=== PATIENT | female | born 1950 | race Caucasian/White ===

== ENCOUNTER 2016-12-05 08:59 | Emergency (ER) | payer MEDICARE, MEDICAID ==
[~2016-12-05] VITALS: Ht 161.3 cm; Wt 85.7 kg
[~2016-12-05 08:59] MED LIST: AMLO5TAB5 PO; HCT25T PO; LAMO100T69 PO; LORA0.5T PO; OLN10T PO; OXYC-199 PO; PARO20TA57 PO; POTA10CA43 PO; PROP20TA23 PO; PRX10T PO; SMV20T PO; TEA60OIL TP
--- OUTSIDE RECORDS SUMMARY | 2016-12-05 09:05 | XMS REPORT ---
Author Author NEYDA HOPSON e[employer] Address Unknown Phone Unavailable Care Team Providers Care Pbx Technician Name Role Phone NEYDA HOPSON CP Unavailable Allergies, Adverse Reactions, Alerts Substance Reaction Event Type N.K.D.A. Info Not Available Non Drug Allergy Problems Problem Type Condition Code Onset Dates Condition Status Assessment Encounter for dental examination Z01.20 Active Problem Encounter for dental examination Z01.20 Active Medications Medication Code System Code Instructions Start Date End Date Status Dosage Propranolol HCl [facility] [address]-16 20 MG/5ML Orally not defined Micro-K [facility] [address]-47 10 MEQ Orally Twice a day 1 capsule Zocor [facility] [address]-11 20 MG Orally Once a day 1 tablet in the evening Paxil [facility] [address]-93 10 MG Orally Once a day 1 tablet in the morning Hydrochlorothiazide [facility] [address]-73 25 MG Orally Once a day 1 tablet Ativan [facility] [address]-81 0.5 MG Orally Twice a day 1 tablet as needed MiraLax [facility] [address]-66 Orally not defined Zyprexa [facility] [address]-89 10 MG Orally Once a day 1 tablet Paxil [facility] [address]-16 20 MG Orally Once a day 1 tablet in the morning Lamictal [facility] [address]-38 100 MG Orally Twice a day 2 tablets Norvasc [facility] [address]-19 5 MG Orally Once a day 1 tablet Procedures Procedure Coding System Code Date INTRAORL-PERIAPICAL 1 FILM 35695 CPT-4 D0220 Mar 22, 2015 INTRAORL-PERIAPICAL EA ADD FILM CPT-4 D0230 Mar 22, 2015 COMP ORAL EVALUATION - NEW/EST PT CPT-4 D0150 Mar 22, 2015 TOPICAL FLUORIDE VARNISH CPT-4 D1206 Mar 22, 2015 BITEWINGS - FOUR FILMS CPT-4 D0274 Mar 22, 2015 INTRAORL-PERIAPICAL EA ADD FILM CPT-4 D0230 Mar 22, 2015 Full mouth debridement CPT-4 D4355 Mar 22, 2015 PANORAMIC FILM SEE ALSO CODE 62069 CPT-4 D0330 Mar 22, 2015 Vital Signs Date/Time: Mar 22, 2015 Blood Pressure Diastolic 67 mmHg Blood Pressure Systolic 111 mmHg Cardiac Monitoring Heart Rate 65 bpm Results No Known Results Summary Purpose eClinicalWorks Submission
--- OUTSIDE RECORDS SUMMARY | 2016-12-05 09:05 | XMS REPORT ---
Author Author JEANNINE SEVERINO Organization e[employer] Address Unknown Phone Unavailable Care Team Providers Care Home Health Care Respiratory Therapist Name Role Phone JEANNINE SEVERINO CP Unavailable Allergies, Adverse Reactions, Alerts Substance Reaction Event Type N.K.D.A. Info Not Available Non Drug Allergy Problems Problem Type Condition Code Onset Dates Condition Status Assessment Encounter for dental examination and cleaning without abnormal findings Z01.20 Active Problem Encounter for dental examination Z01.20 Active Medications No Known Medications Procedures Procedure Coding System Code Date TOPICAL FLUORIDE VARNISH CPT-4 D1206 December 01, 2015 PROPHYLAXIS - ADULT CPT-4 D1110 December 01, 2015 Results No Known Results Summary Purpose eClinicalWorks Submission
--- OUTSIDE RECORDS SUMMARY | 2016-12-05 09:05 | XMS REPORT ---
Author Author MARCELLE AMATO [facility] [place] eClinicalWorks Address Unknown Phone Unavailable Care Team Providers Care Postal Mail Carrier Name Role Phone MARCELLE AMATO CP Unavailable Allergies No Known Allergies Problems Problem Type Condition Code Onset Dates Condition Status Assessment Encounter for dental examination Z01.20 Active Problem Encounter for dental examination Z01.20 Active Medications No Known Medications Procedures Procedure Coding System Code Date INTRAORL-PERIAPICAL EA ADD FILM CPT-4 D0230 December 01, 2015 INTRAORL-PERIAPICAL EA ADD FILM CPT-4 D0230 December 01, 2015 PERIODIC ORAL EXAMINATION CPT-4 D0120 December 01, 2015 INTRAORL-PERIAPICAL EA ADD FILM CPT-4 D0230 December 01, 2015 INTRAORL-PERIAPICAL EA ADD FILM CPT-4 D0230 December 01, 2015 INTRAORL-PERIAPICAL 1 FILM 20456 CPT-4 D0220 December 01, 2015 INTRAORL-PERIAPICAL EA ADD FILM CPT-4 D0230 December 01, 2015 Results No Known Results Summary Purpose eClinicalWorks Submission
--- OUTSIDE RECORDS SUMMARY | 2016-12-05 09:06 | XMS REPORT | Continuity of Care Document ---
Author Author [facility] Organization 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 04/08/2014 MARY VALE DO Ot 233.0 04/08/2014 MARY VALE DO Ot 793.81 04/15/2014 AALIYAH CHRISTIAN MD Ot 174.4 MAL MARCK BREAST UP-OUTER 04/15/2014 AALIYAH CHRISTIAN MD Ot 272.4 HYPERLIPIDEMIA NEC/NOS 04/15/2014 AALIYAH CHRISTIAN MD Ot 278.00 OBESITY, NOS 04/15/2014 AALIYAH CHRISTIAN MD Ot 295.70 SCHIZOAFFECTIVE DISORDER, UNSPECIFIED 04/15/2014 AALIYAH CHRISTIAN MD Ot 318.0 MODERATE INTELLECTUAL DISABILITIES 04/15/2014 AALIYAH CHRISTIAN MD Ot 401.9 HYPERTENSION NOS 04/15/2014 AALIYAH CHRISTIAN MD Ot V58.69 OTH MED,LT,CURRENT USE 04/15/2014 GINO STINSON, AALIYAH Huynh Ot V85.33 BODY MASS INDEX 33.0-33.9, ADULT 01/21/2015 AALIYAH CHRISTIAN MD Ot 174.4 01/21/2015 AALIYAH CHRISTIAN MD Ot 272.4 01/21/2015 AALIYAH CHRISTIAN MD Ot 278.00 01/21/2015 AALIYAH CHRISTIAN MD Ot 295.70 01/21/2015 AALIYAH CHRISTIAN MD Ot 318.0 01/21/2015 AALIYAH CHRISTIAN MD Ot 401.9 01/21/2015 AALIYAH CHRISTIAN MD Ot V58.69 01/21/2015 AALIYAH CHRISTIAN MD Ot V85.33 01/21/2015 AALIYAH CHRISTIAN MD Ot 174.4 01/21/2015 AALIYAH CHRISTIAN MD Ot 272.4 01/21/2015 AALIYAH CHRISTIAN MD Ot 278.00 01/21/2015 GINO STINSON, AALIYAH Huynh Ot 295.70 01/21/2015 GINO STINSON, AALIYAH Huynh Ot 318.0 01/21/2015 GINO STINSON, AALIYAH Huynh Ot 401.9 01/21/2015 GINO STINSON, AALIYAH Huynh Ot V58.69 01/21/2015 GINO STINSON, AALIYAH Huynh Ot V85.33 01/24/2015 Ot 429.3 01/24/2015 Ot 786.07 01/24/2015 Ot 786.2 01/24/2015 Ot 272.4 01/24/2015 Ot 783.1 01/24/2015 Ot 786.05 01/24/2015 Ot 611.72 01/24/2015 Ot V76.12 01/24/2015 Ot 611.72 01/24/2015 Ot V67.9 01/24/2015 Ot 793.82 01/24/2015 Ot V76.12 01/24/2015 Ot 610.0 01/24/2015 Ot 611.72 01/24/2015 GELLENDER DO, MARY Chance Ot V76.12 01/24/2015 GELLENDER DO, MARY A Ot 793.81 01/24/2015 GELLENDER DO, MARY A Ot 233.0 01/24/2015 GELLENDER DO, MARY A Ot 793.81 01/24/2015 JOAQUÍN STINSON, ALEJO Ot 174.9 01/24/2015 JOAQUÍN STINSON, ALEJO Ot 791.9 01/24/2015 JOAQUÍN STINSON, ALEJO Ot V72.63 01/24/2015 JOAQUÍN STINSON, ALEJO Ot V72.83 01/24/2015 JOAQUÍN STINSON, ALEJO Ot V74.8 01/24/2015 GELLENDER DO, MARY A Ot 518.0 01/24/2015 GELLENDER DO, MARY A Ot 791.9 01/24/2015 GINO STINSON, AALIYAH Amina Ot 174.4 01/24/2015 GINO STINSON, AALIYAH Huynh Ot 272.4 01/24/2015 GINO STINSON, AALIYAH Huynh Ot 278.00 01/24/2015 GINO STINSON, AALIYAH Huynh Ot 295.70 01/24/2015 IGNO STINSON, AALIYAH uHynh Ot 318.0 01/24/2015 GINO STINSON, AALIYAH Amina Ot 401.9 01/24/2015 GINO STINSON, AALIYAH Huynh Ot V58.69 01/24/2015 GINO STINSON, AALIYAH Huynh Ot V85.33 01/28/2015 GINO STINSON, AALIYAH Huynh Ot 174.4 01/28/2015 GINO STINSON, AALIYAH Huynh Ot 272.4 01/28/2015 GINO STINSON, AALIYAH Huynh Ot 278.00 01/28/2015 GINO STINSON, AALIYAH Huynh Ot 295.70 01/28/2015 GINO STINSON, AALIYAH Huynh Ot 318.0 01/28/2015 GINO STINSON, AALIYAH Huynh Ot 401.9 01/28/2015 GINO STINSON, AALIYAH Huynh Ot V58.69 01/28/2015 GINO STINSON, AALIYAH Huynh Ot V85.33 02/23/2015 GINO STINSON, AALIYAH Huynh Ot 174.4 MAL MARCK BREAST UP-OUTER 02/23/2015 GINO STINSON, AALIYAH Huynh Ot 272.4 HYPERLIPIDEMIA NEC/NOS 02/23/2015 GINO STINSON, AALIYAH Huynh Ot 278.00 OBESITY, NOS 02/23/2015 GINO STINSON, AALIYAH Huynh Ot 295.70 SCHIZOAFFECTIVE DISORDER, UNSPECIFIED 02/23/2015 GINO STINSON, AALIYAH Huynh Ot 318.0 MODERATE INTELLECTUAL DISABILITIES 02/23/2015 GINO STINSON, AALIYAH Huynh Ot 401.9 HYPERTENSION NOS 02/23/2015 GINO STINSON, AALIYAH Huynh Ot V58.69 OTH MED,LT,CURRENT USE 02/23/2015 GINO STINSON, AALIYAH Huynh Ot V85.33 BODY MASS INDEX 33.0-33.9, ADULT 02/23/2015 GELLENDER DO, MARY Chance Ot V76.12 03/14/2015 GELLENDER DO, MARY Robson Ot V76.12 03/21/2015 GELLENDER DO, MARY Chance Ot V76.12 07/21/2015 GINO STINSON, AALIYAH Huynh Ot 174.4 07/21/2015 GINO STINSON, AALIYAH Huynh Ot 272.4 07/21/2015 GINO STINSON, AALIYAH Huynh Ot 278.00 07/21/2015 GINO STINSON, AALIYAH Huynh Ot 295.70 07/21/2015 GINO STINSON, AALIYAH Huynh Ot 318.0 07/21/2015 GINO STINSON, AALIYAH Huynh Ot 401.9 07/21/2015 GINO STINSON, AALIYAH Huynh Ot V58.69 07/21/2015 GINO STINSON, AALIYAH Huynh Ot V85.33 04/05/2016 Ot 793.82 INCONCLUSIVE MAMMOGRAM 04/05/2016 Ot V76.12 OTH SCREEN MAMMO-MALIGN NEOPLASM OF ISAAC 04/05/2016 Ot 610.0 SOLITARY CYST OF BREAST 04/05/2016 Ot 611.72 LUMP OR MASS IN BREAST 04/05/2016 MARY VALE DO Ot V76.12 OTH SCREEN MAMMO-MALIGN NEOPLASM OF ISAAC 04/05/2016 MARY VALE DO Ot 793.81 MAMMOGRAPHIC MICROCLACIFICATION 04/05/2016 MARY VALE DO Ot 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 04/05/2016 MARY VALE DO Ot 793.81 MAMMOGRAPHIC MICROCLACIFICATION 04/05/2016 ALEJO YANES MD Ot 174.9 MALIGN NEOPL BREAST NOS 04/05/2016 JOAQUÍN STINSON, ALEJO Ot 791.9 ABN URINE FINDINGS NEC 04/05/2016 ALEJO YANES MD Ot V72.63 PRE-PROCEDURAL LABORATORY EXAMINATION 04/05/2016 ALEJO YANES MD Ot V72.83 EXAM PRE-OPERATIVE NEC 04/05/2016 ALEJO YANES MD Ot V74.8 SCREEN-BACTERIAL DIS NEC 04/05/2016 MARY VALE DO Ot 518.0 PULMONARY COLLAPSE 04/05/2016 MARY VALE DO Ot 791.9 ABN URINE FINDINGS NEC 04/05/2016 MARY VALE DO Ot V76.12 OTH SCREEN MAMMO-MALIGN NEOPLASM OF ISAAC 04/05/2016 GINO STINSON, AALIYAH Huynh Ot 174.4 04/05/2016 GINO STINSON, AALIYAH Huynh Ot 272.4 04/05/2016 GINO STINSON, AALIYAH Huynh Ot 278.00 04/05/2016 GINO STINSON, AALIYAH Huynh Ot 295.70 04/05/2016 GINO STINSON, AALIYAH Amina Ot 318.0 04/05/2016 GINO STINSON, AALIYAH Amina Ot 401.9 04/05/2016 GINO STINSON, AALIYAH Amina Ot V58.69 04/05/2016 GINO STINSON, AALIYAH Amina Ot V85.33 04/05/2016 KAVIN WEEKS MARY Chance Ot Z12.31 ENCNTR SCREEN MAMMOGRAM FOR MALIGNANT NE 04/06/2016 KAVIN WEEKS MARY Chance Ot Z12.31 ENCNTR SCREEN MAMMOGRAM FOR MALIGNANT NE 04/06/2016 KAVIN WEEKSMARY Ot Z12.31 ENCNTR SCREEN MAMMOGRAM FOR MALIGNANT NE Procedures Results Encounters ACCT No. Visit Date/Time Discharge Status Pt. Type Provider Facility Loc./Unit Complaint [id number] 02/24/2015 00:17:00 2014 23:59:59 CLS Preadmit AALIYAH CHRISTIAN MD [facility] ONC [id number] 01/27/2015 10:48:00 2014 00:01:00 DIS Outpatient AALIYAH CHRISTIAN MD [facility] ONC [id number] 02/18/2015 10:00:00 2014 23:59:59 CLS Outpatient MARY VALE DO [facility] RAD SCREENING [id number] 01/15/2014 09:30:00 2013 00:01:00 DIS Outpatient AALIYAH CHRISTIAN MD [facility] ONC [id number] 02/23/2014 13:13:00 2013 23:59:59 CLS Outpatient MARY VALE DO [facility] RAD WBC 26.4 [id number] 02/18/2014 06:15:00 2013 15:20:00 DIS Outpatient ALEJO YANES MD [facility] SDC RIGHT BREAST CANCER [id number] 02/11/2014 11:59:00 2013 23:59:59 CLS Outpatient ALEJO YANES MD [facility] PREOP RIGHT BREAST CANCER [id number] 12/30/2013 09:27:00 2013 23:59:59 CLS Outpatient MARY VALE DO [facility] RAD ABN MAMMO,CALCIFICATIONS [id number] 12/22/2013 13:32:00 2013 23:59:59 CLS Outpatient MARY VALE DO [facility] RAD ABNORMAL MAMMO [id number] 12/03/2013 13:13:00 2013 23:59:59 CLS Outpatient MARY VALE DO [facility] RAD SCREENING [id number] 04/05/2016 09:59:00 ACT Outpatient MARY VALE DO [facility] RAD SCREENING [id number] 01/24/2015 13:21:00 Document Registration [id number] 01/24/2015 13:21:00 Document Registration [id number] 10/02/2011 10:29:00 Document Registration [id number] 09/06/2011 10:04:00 Document Registration [id number] 08/21/2010 13:52:00 Document Registration [id number] 08/08/2010 09:52:00 Document Registration [id number] 09/23/2009 09:29:00 Document Registration [id number] 08/18/2009 11:06:00 Document Registration
--- NOTE | 2016-12-05 09:10 | ED Fall/Injury ---
General Stated Complaint: FALL/HEAD INJ Source: patient, EMS, caregiver Exam Limitations: other (mentally challenged) History of Present Illness Time seen by provider: 09:00 Initial Comments Patient arrived by EMS along with caregiver from the work [facility] on [facility]. Patient has background of dementia and mentally challenged. She was walking through the door and the screen was apparently knocked out however the screen door frame was still closed and she did not step up high enough over it tripped and fell face first into the concrete sidewalk. She was bleeding from a laceration in her middle of her for head as well as had scraped up her right knee. She claims she has pain in her right knee and her forehead. The bleeding has stopped. Caregiver denies patient being on any Blood thinners. She says last few days the patient has been behaving more slowly and attributed this to her dementia. EMS reports the patient had no loss of consciousness and they applied pressure and the bleeding had pretty much stopped by the time they arrived at the ER. Allergies and Home Medications Allergies Coded Allergies: No Known Drug Allergies (Verified Allergy, Unknown, 01/13/09) Home Medications Amlodipine Besylate 5 Mg Tablet, 5 MG PO DAILY, (Reported) Hydrochlorothiazide 25 Mg Tab, 25 MG PO DAILY, (Reported) Lamotrigine 100 Mg Tablet, 100 MG PO BID, (Reported) Lorazepam 0.5 Mg Tablet, 0.5 MG PO TID, (Reported) Olanzapine 10 Mg Tab, 10 MG PO HS, (Reported) Oxycodone Hcl/Acetaminophen 1 Tab Tablet, 1-2 TAB PO Q6H, #35 Prescribed by: ALEJO YANES on 02/18/14 1103 Paroxetine Hcl 10 Mg Tablet, 30 MG PO DAILY, (Reported) take with 20mg tab to total 30mg Paroxetine Hcl 20 Mg Tablet, 30 MG PO DAILY, (Reported) take with 10mg tab to total 30mg Potassium Chloride 10 Meq Capsule.sa, 10 MEQ PO BID WITH MEALS, (Reported) Propranolol Hcl 20 Mg Tablet, 20 MG PO BID, (Reported) Simvastatin 20 Mg Tab, 20 MG PO DAILY, (Reported) Tea Tree Oil 60 Ml Oil, 1 DROP TP HS, (Reported) apply one drop to toenails after shower Constitutional: No chills, No fever, No malaise Eyes: Denies Blindness, Denies Blurred Vision, Denies Pain Ears, Nose, Mouth, Throat: denies ear pain, denies ear discharge, denies epistaxis, denies loose teeth Respiratory: No cough, No short of breath Cardiovascular: No chest pain, No edema, No syncope Gastrointestinal: No abdominal pain, No constipation, No diarrhea, nausea, No vomiting Genitourinary: No dysuria, No frequency Musculoskeletal: No back pain, No joint pain Skin: see HPI Past Xzyphda-Gwnrft-Vidvhl Hx Patient Social History Alcohol Use: Denies Use Recreational Drug Use: No Smoking Status: Never a Smoker Surgeries HX Surgeries: Yes (cysts off chest, possible hysterectomy) Respiratory Hx Respiratory Disorders: No Cardiovascular Hx Cardiac Disorders: Yes Neurological Hx Neurological Disorders: Yes (moderate MR) Genitourinary Hx Genitourinary Disorders: No Gastrointestinal Hx Gastrointestinal Disorders: Yes (constipation) Musculoskeletal Hx Musculoskeletal Disorders: No Endocrine Hx Endocrine Disorders: No HEENT HX ENT Disorders: No Blood Transfusions Hx Blood Disorders: No Family Medical History Family Medial History: Patient reports no known family medical history. Physical Exam Vital Signs Vital Sign - Last 12Hours 12/05/16 08:59 Temp 98.2 Pulse 92 Resp 18 B/P (MAP) 130/97 Pulse Ox 93 O2 Delivery Room Air Capillary Refill : General Appearance: WD/WN, mild distress, obese HEENT: PERRL/EOMI, normal ENT inspection, TMs normal, pharynx normal Neck: non-tender, full range of motion, supple, normal inspection Cardiovascular: normal peripheral pulses, regular rate, rhythm, no edema Respiratory: chest non-tender, lungs clear Gastrointestinal: non tender, soft Back: normal inspection, no vertebral tenderness Extremities: normal range of motion, non-tender, normal inspection, no pedal edema, normal capillary refill Neurologic/Psychiatric: waste chopper II-XII nml as tested, no motor/sensory deficits, alert, normal mood/affect, other (oriented to self. Caregiver remarks this is baseline. Cooperative.) Skin: normal color, warm/dry, other (linear hemostatic laceration forehead approximately 3-4 cm) Progress/Results/Core Measures Results/Orders Lab Results Laboratory Tests Test 12/05/16 09:18 12/05/16 09:44 Range/Units White Blood Count 7.2 4.3-11.0 10^3/uL Red Blood Count 4.69 4.35-5.85 10^6/uL Hemoglobin 13.8 11.5-16.0 G/DL Hematocrit 43 35-52 % Mean Corpuscular Volume 91 80-99 FL Mean Corpuscular Hemoglobin 29 25-34 PG Mean Corpuscular Hemoglobin Concent 32 32-36 G/DL Red Cell Distribution Width 13.7 10.0-14.5 % Platelet Count 276 130-400 10^3/uL Mean Platelet Volume 8.9 7.4-10.4 FL Neutrophils (%) (Auto) 54 42-75 % Lymphocytes (%) (Auto) 30 12-44 % Monocytes (%) (Auto) 12 0-12 % Eosinophils (%) (Auto) 4 0-10 % Basophils (%) (Auto) 0 0-10 % Neutrophils # (Auto) 3.9 1.8-7.8 X 10^3 Lymphocytes # (Auto) 2.1 1.0-4.0 X 10^3 Monocytes # (Auto) 0.9 0.0-1.0 X 10^3 Eosinophils # (Auto) 0.3 0.0-0.3 10^3/uL Basophils # (Auto) 0.0 0.0-0.1 10^3/uL Sodium Level 140 135-145 MMOL/L Potassium Level 4.1 3.6-5.0 MMOL/L Chloride Level 101 98-107 MMOL/L Carbon Dioxide Level 33 H 21-32 MMOL/L Anion Gap 6 5-14 MMOL/L Blood Urea Nitrogen 13 7-18 MG/DL Creatinine 0.83 0.60-1.30 MG/DL Estimat Glomerular Filtration Rate > 60 BUN/Creatinine Ratio 16 Glucose Level 115 H 70-105 MG/DL Calcium Level 9.3 8.5-10.1 MG/DL Magnesium Level 2.1 1.8-2.4 MG/DL Total Bilirubin 0.3 0.1-1.0 MG/DL Aspartate Amino Transf (AST/SGOT) 19 5-34 U/L Alanine Aminotransferase (ALT/SGPT) 21 0-55 U/L Alkaline Phosphatase 88 40-136 U/L Ammonia 46 H 11-32 UMOL/L C-Reactive Protein High Sensitivity 0.25 0.00-0.50 MG/DL Total Protein 7.3 6.4-8.2 GM/DL Albumin 3.8 3.2-4.5 GM/DL Urine Color YELLOW Urine Clarity CLEAR Urine pH 8 5-9 Urine Specific [place] 1.010 L 1.016-1.022 Urine Protein NEGATIVE NEGATIVE Urine Glucose (UA) NEGATIVE NEGATIVE Urine Ketones NEGATIVE NEGATIVE Urine Nitrite NEGATIVE NEGATIVE Urine Bilirubin NEGATIVE NEGATIVE Urine Urobilinogen NORMAL NORMAL MG/DL Urine Leukocyte Esterase 1+ H NEGATIVE Urine RBC (Auto) NEGATIVE NEGATIVE Urine RBC NONE /HPF Urine WBC RARE /HPF Urine Squamous Epithelial Cells 0-2 /HPF Urine Crystals NONE /LPF Urine Bacteria NEGATIVE /HPF Urine Casts NONE /LPF Urine Mucus NEGATIVE /LPF Urine Culture Indicated NO My Orders Orders - CAMERON BULLARD Ammonia (12/05/16 09:11) Cbc With Automated Diff (12/05/16 09:11) Comprehensive Metabolic Panel (12/05/16 09:11) Hs C Reactive Protein (12/05/16 09:11) Magnesium (12/05/16 09:11) Ua Culture If Indicated (12/05/16 09:11) Ct Head Wo (12/05/16 09:11) Chest 1 View, Ap/Pa Only (12/05/16 09:11) Knee, Right, 3 Views (12/05/16 09:11) Fentanyl Injection (Sublimaze Injection (12/05/16 09:11) Lidocaine/Epi 2% 1:100,000 (Xylocaine/Ep (12/05/16 09:30) Medications Given in ED Current Medications Medications Dose Ordered Sig/Pepe Route Start Time Stop Time Status Last Admin Dose Admin Lidocaine/ Epinephrine 20 ml ONCE ONCE INJ 12/05/16 09:30 12/05/16 09:31 DC 12/05/16 10:21 20 ML Vital Signs/I&O Vital Sign - Last 12Hours 12/05/16 08:59 Temp 98.2 Pulse 92 Resp 18 B/P (MAP) 130/97 Pulse Ox 93 O2 Delivery Room Air Progress Note #1: Time: 09:23 Progress Note [place] head CT rules indicate an outpatient over the age of 65 it is difficult to rule out the need for imaging. Since the patient is not able to give a very good history and replies yes to many questions regardless how they are asked. We'll go ahead and obtain imaging because she does have a large hematoma and laceration to the forehead although depressed skull fracture is not felt to be likely. She has also recently been experiencing some decreased mentation per the caregiver which may be more likely related to illness or delirium versus less likely rapidly progressive dementia. Progress Note #2: Time: 10:20 Progress Note All blood work was unremarkable except for the ammonia level which was elevated 46 and a right hemidiaphragm could possibly relate to hepatitis or hepatomegaly. We'll have her take lactulose since she is a little constipated and follow-up with her PCP for further workup. Liver enzymes are unremarkable. Spoke with the nurse at Center and she had no knowledge of any hepatitis. Patient is not diabetic. We'll get her a tetanus shot and some antibiotics and allow her to follow up outpatient. She is been given a staple puller and instructions to have the montrell removed Saturday morning either by her PCP or the nurse. Diagnostic Imaging Diagonstic Imaging: CT Plain Films/CT/US/NM/MRI: head Comments VIA [facility], [facility]. [place], [place] NAME: AALIYAH PEREIRA MED REC#: [id number] PT STATUS: REG ER : 1950 PHYSICIAN: CAMERON BULLARD MD ADMIT DATE: 12/05/16/ER Draft Date of Exam:12/05/16 CT HEAD WO INDICATION: Fall with injury to head. Noncontrast brain CT is performed. There are no extra-axial fluid collections. No intracranial hemorrhage. No intracranial mass or mass effect. No midline shift. The ventricles are normal in size and position. There are no focal parenchymal abnormalities in the brain. Calvarial windows are unremarkable except for hyperostosis. There is soft tissue swelling in the frontal scalp with small radiopaque densities in the frontal scalp which may be calcifications or small foreign bodies. IMPRESSION: No acute intracranial abnormality. Frontal scalp swelling with small radiopaque densities overlying the skin surface which may be calcifications or small foreign bodies. Correlate clinically. Dictated on workstation # [id number] Dict: 12/05/16 0947 Trans: 12/05/16 0952 [id number] Interpreted by: YEISON BORJA MD Electronically signed by: Reviewed: Reviewed by Me Diagonstic Imaging: Xray Plain Films/CT/US/NM/MRI: chest Comments NAME: AALIYAH PEREIRA MED REC#: [id number] PHYSICIAN: CAMERON BULLARD MD CC: YEISON BORJA MD; CAMERON BULLARD Page 1 of 1 RADIOLOGY REPORT VIA [place], [place] CC: YEISON BORJA MD; CAMERON BULLARD Page 1 of 1 RADIOLOGY REPORT NAME: AALIYAH PEREIRA MED REC#: [id number] PT STATUS: REG ER : 1950 PHYSICIAN: CAMERON BULLARD MD ADMIT DATE: 12/05/16/ER Signed Date of Exam: 12/05/16 CHEST 1 VIEW, AP/PA ONLY INDICATION: Fall with chest pain. Frontal chest obtained at 10:04 AM and compared with 02/23/2014. Heart and mediastinal silhouette are unremarkable. The lungs are clear. There is no pneumothorax or pleural fluid. There is elevation of the right hemidiaphragm. IMPRESSION: Elevation of the right hemidiaphragm. No focal infiltrate or pneumothorax or pleural fluid. Dictated by: Dictated on workstation # [id number] Dict: 12/05/16 1001 Trans: 12/05/16 1003 Interpreted by: YEISON BORJA MD Electronically signed by: YEISON BORJA MD 12/05/16 1003 Reviewed: Reviewed by Me Diagonstic Imaging: Xray Plain Films/CT/US/NM/MRI: knee (left) Comments VIA [facility], [facility]. [place], [place] NAME: AALIYAH PEREIRA MED REC#: [id number] PT STATUS: REG ER : 1950 PHYSICIAN: CAMERON BULLARD MD ADMIT DATE: 12/05/16/ER Draft Date of Exam:12/05/16 KNEE, RIGHT, 3 VIEWS INDICATION: Fall with right knee pain. AP, oblique, and lateral views of the right knee are obtained. There is advanced osteoarthritic change of the right knee with medial joint space narrowing with osteophyte formation and milder lateral joint space narrowing. There is patellofemoral spurring with chronic-appearing calcifications superior to the patella. There is no acute fracture or definite joint effusion. IMPRESSION: Extensive chronic findings of the right knee with no acute bony abnormality. Dictated on workstation # [id number] Dict: 12/05/16 1002 Trans: 12/05/16 1004 [id number] Interpreted by: YEISON BORJA MD Electronically signed by: Reviewed: Reviewed by Me Departure Impression Impression: Primary Impression: Fall Qualified Codes: W19.XXXA - Unspecified fall, initial encounter Additional Impressions: Laceration of head Qualified Codes: S01.01XA - Laceration without foreign body of scalp, initial encounter Abrasion of knee, left Qualified Codes: S80.212A - Abrasion, left knee, initial encounter Hyperammonemia Disposition: HOME, SELF-CARE Condition: Improved Departure-Patient Inst. Decision time for Depature: 10:40 Referrals: MARY AVLE DO (PCP/Family) Primary Care Physician Patient Instructions: Concussion, Adult (DC), Laceration Repair With [place] ( DC) Add. Discharge Instructions: You have a cut on your forehead which has been closed primarily by 13 montrell after being cleaned out. You have been put on antibiotics to be taken 1 tablet twice daily with food. Take to completion. You have been given a tetanus shot today. You should have the montrell removed Saturday morning by either your primary doctor or the nurse at your facility. If the wound looks bright red is becoming more painful or draining anything worrisome then you should return to the ER or go to your primary care physician which ever is appropriate. If you' re having fevers or nausea and vomiting should also return to the ER or go to your primary care doctor. You may shower and allow soap water to run over the wound please do not scrub the montrell as this may cause more pain or prematurely pull the montrell out. If you're having pain you may place ice directly to the place where the swelling is. You may also use 1 g of Tylenol every 8 hours by mouth as needed or 800 mg of ibuprofen every 8 hours by mouth. Keep the wound covered while in the elisha environment and you may also use a thin layer of Vaseline to keep the skin edges moist. I cannot fully explain why you have been feeling low for the past several days but your ammonia level was elevated. This is sometimes a result of the liver not acting well.You should have this followed up within the next week or 2 by your primary care physician. I have prescribed lactulose for you to rock picker and take twice daily until you're having copious loose stools. Make sure drinking plenty of fluids. Scripts Sulfamethoxazole/Trimethoprim (Bactrim Ds Tablet) 1 Each Tablet 1 EACH PO BID for 5 Days, #10 TAB 0 Refills Prov: CAMERON BULLARD 12/05/16 Lactulose (Lactulose) 10 Gm/15 Ml Solution 10 GM PO BID for 3 Days, #6 EA 0 Refills Prov: CAMERON BULLARD 12/05/16 Copy Copies To 1: MARY VALE DO CAMERON BULLARD Dec 05, 2016 09:10
[2016-12-05] MEDS ORDERED: fentaNYL INJECTION 100 MCG/2 ML AMP IVP STA (09:11)
[2016-12-05 09:28] LABS: BASOPHILS % (AUTO) 0 % (0-10); EOSINOPHILS # (AUTO) 0.3 10^3/uL (0.0-0.3); EOSINOPHILS % (AUTO) 4 % (0-10); LYMPHOCYTES # (AUTO) 2.1 X 10^3 (1.0-4.0); LYMPHOCYTES % (AUTO) 30 % (12-44); MEAN CORPUSCULAR HEMOGLOBIN 29 PG (25-34); MEAN CORPUSCULAR HGB CONC 32 G/DL (32-36); MEAN CORPUSCULAR VOLUME 91 FL (80-99); MEAN PLATELET VOLUME 8.9 FL (7.4-10.4); MONOCYTES # (AUTO) 0.9 X 10^3 (0.0-1.0); MONOCYTES % (AUTO) 12 % (0-12); NEUTROPHILS # (AUTO) 3.9 X 10^3 (1.8-7.8); NEUTROPHILS % (AUTO) 54 % (42-75); PLATELET COUNT 276 10^3/uL (130-400); RED BLOOD COUNT 4.69 10^6/uL (4.35-5.85); RED CELL DISTRIBUTION WIDTH 13.7 % (10.0-14.5); WHITE BLOOD COUNT 7.2 10^3/uL (4.3-11.0)
[2016-12-05] MEDS ORDERED: LIDOCAINE/EPI 2% 1:100,00 (XYLOCAINE) 20 ML VIAL INJ ONE (09:30)
[2016-12-05 09:46] LABS: ALANINE AMINOTRANSFERASE 21 U/L (0-55); ALBUMIN 3.8 GM/DL (3.2-4.5); AMMONIA 46 UMOL/L (11-32); ANION GAP 6 MMOL/L (5-14); ASPARTATE AMINO TRANSFERASE 19 U/L (5-34); BILIRUBIN,TOTAL 0.3 MG/DL (0.1-1.0); BLOOD UREA NITROGEN 13 MG/DL (7-18); BUN/CREATININE RATIO 16; CALCIUM 9.3 MG/DL (8.5-10.1); CARBON DIOXIDE 33 MMOL/L (21-32); CHLORIDE 101 MMOL/L (98-107); CREATININE SERUM 0.83 MG/DL (0.60-1.30); GFR ESTIMATED > 60; GLUCOSE 115 MG/DL (70-105); MAGNESIUM 2.1 MG/DL (1.8-2.4); POTASSIUM 4.1 MMOL/L (3.6-5.0); SODIUM 140 MMOL/L (135-145); TOTAL PROTEIN 7.3 GM/DL (6.4-8.2); hs C REACTIVE PROTEIN 0.25 MG/DL (0.00-0.50)
[2016-12-05 09:49] LABS: BILIRUBIN,URINE NEGATIVE (NEGATIVE); KETONES,URINE NEGATIVE (NEGATIVE); LEUKOCYTE ESTERASE ,URINE 1+ (NEGATIVE); NITRITE,URINE NEGATIVE (NEGATIVE); PH,URINE 8 (5-9); PROTEIN,URINE NEGATIVE (NEGATIVE); UROBILINOGEN,URINE NORMAL (NORMAL)
--- NOTE | 2016-12-05 09:52 | Diagnostic Imaging Report ---
INDICATION: Fall with injury to head. Noncontrast brain CT is performed. There are no extra-axial fluid collections. No intracranial hemorrhage. No intracranial mass or mass effect. No midline shift. The ventricles are normal in size and position. There are no focal parenchymal abnormalities in the brain. Calvarial windows are unremarkable except for hyperostosis. There is soft tissue swelling in the frontal scalp with small radiopaque densities in the frontal scalp which may be calcifications or small foreign bodies. IMPRESSION: No acute intracranial abnormality. Frontal scalp swelling with small radiopaque densities overlying the skin surface which may be calcifications or small foreign bodies. Correlate clinically. Dictated by: Dictated on workstation # [id number]
[2016-12-05 10:01] LABS: SQUAMOUS EPITHELIAL CELL,UR 0-2 /HPF; WBC,URINE RARE /HPF
--- NOTE | 2016-12-05 10:03 | Diagnostic Imaging Report ---
INDICATION: Fall with chest pain. Frontal chest obtained at 10:04 AM and compared with 02/23/2014. Heart and mediastinal silhouette are unremarkable. The lungs are clear. There is no pneumothorax or pleural fluid. There is elevation of the right hemidiaphragm. IMPRESSION: Elevation of the right hemidiaphragm. No focal infiltrate or pneumothorax or pleural fluid. Dictated by: Dictated on workstation # [id number]
--- NOTE | 2016-12-05 10:05 | Diagnostic Imaging Report ---
INDICATION: Fall with right knee pain. AP, oblique, and lateral views of the right knee are obtained. There is advanced osteoarthritic change of the right knee with medial joint space narrowing with osteophyte formation and milder lateral joint space narrowing. There is patellofemoral spurring with chronic-appearing calcifications superior to the patella. There is no acute fracture or definite joint effusion. IMPRESSION: Extensive chronic findings of the right knee with no acute bony abnormality. Dictated by: Dictated on workstation # [id number]
[2016-12-05] MEDS ORDERED: TETANUS & DIPHTHERIA TOX,ADULT 0.5 ML (TENIVAC) IM ONE (10:45)
[2016-12-05] MEDS ORDERED: SULF1TAB35 PO (10:58)
[2016-12-05] MEDS ORDERED: LACT10SO PO (10:58)
[2016-12-05 11:14] VITALS: BP 147/81
== END 2016-12-05 11:13 | disposition home or self-care (01) ==
LOC: EDUNIT# 08:59 → ER 09:01
DX: S01.81XA Laceration without foreign body of other part of head, initial encounter (principal); S80.212A Abrasion, left knee, initial encounter; W01.0XXA Fall on same level from slipping, tripping and stumbling without subsequent striking against object, initial encounter
CPT/HCPCS: 12013; 36415; 70450; 71010; 73562; 80053; 81000; 82140; 83735; 85025; 86141; 90471; 90714; 96374

== ENCOUNTER → 2017-04-16 | Outpatient (CLI) | payer MEDICARE, MEDICAID ==
[~2017-04-16] MED LIST changes: +LACT10SO PO; +SULF1TAB35 PO
--- NOTE | 2017-04-17 19:31 | Diagnostic Imaging Report ---
EXAMINATION: Left breast diagnostic mammogram with tomography. The current study was also evaluated with a Computer Aided Detection (CAD) system. COMPARISON: 02/18/15. INDICATION: The patient has had a right mastectomy for breast cancer. No current symptoms. FINDINGS: The left breast demonstrates heterogeneously dense parenchyma which may decrease mammographic sensitivity. Benign-appearing calcifications are seen. Allowing for technique and positional differences, no suspicious change is seen. IMPRESSION: No significant change. ACR BI-RADS Category 2: Benign findings. Result letter will be mailed to the patient. Note: At least 10% of breast cancer is not imaged by mammography. Dictated on workstation # [id number]
== END ==
LOC: RAD 10:15
PROVIDERS: ATTEND Family Medicine
DX: Z12.31 Encounter for screening mammogram for malignant neoplasm of breast (principal); Z85.3 Personal history of malignant neoplasm of breast; Z90.11 Acquired absence of right breast and nipple

== ENCOUNTER → 2018-07-29 | Outpatient (CLI) | payer MEDICARE, MEDICAID ==
--- NOTE | 2018-07-29 11:41 | Diagnostic Imaging Report ---
INDICATION: Postmenopausal female. COMPARISON: None. FINDINGS: AP Spine L2-L3: [BMD (g/cm2): 1.467] [T-Score: 2.2] [Z-Score: 2.7] [BMD Previous: na] [BMD % Change: na] LT Hip Neck: [BMD (g/cm2): 0.881] [T-Score: -1.1] [Z-Score: -0.3] LT Hip Total: [BMD (g/cm2):1.070] [T-Score:0.5] [Z-Score: 1.0] [BMD Previous: na] [BMD % Change: na] RT Hip Neck: [BMD (g/cm2):0.928] [T-Score:-0.8] [Z-Score:0.0] RT Hip Total: [BMD (g/cm2):0.989] [T-score:-0.2] [Z-Score:0.3] [BMD Previous:na] [BMD % Change:na] *Indicates significant change from prior examination based on 95% confidence level. World Health Organization criteria for BMD interpretation classify patients as Normal (T-score at or above -1.0), Osteopenic (T-score between -1.0 and -2.5) or Osteoporotic (T-score at or below -2.5). LIMITATIONS AND MODIFICATION: Marked degenerative changes in the lumbar spine falsely elevate bone density. Degenerative changes are seen in the hips as well. FRACTURE RISK (FRAX SCORE): The ten year probability of (%): Major Osteoporotic Fracture: [7.7] Hip Fracture: [0.6] IMPRESSION: 1. Osteopenia (Low bone mass). 2. Baseline examination. 3. See below National Osteoporosis Foundation guidelines on when to potentially initiate pharmacologic therapy. Based on the National Osteoporosis Foundation Guidelines, pharmacologic treatment should be initiated in any of the following, unless clinical conditions suggest otherwise: * Any patient with prior fragility fracture of the hip or vertebrae. A spine fracture indicates 5X risk for subsequent spine fracture and 2X risk for subsequent hip fracture. * Osteoporosis (T-score <-2.5). * Postmenopausal women and men age 50 and older with low bone mass/osteopenia (T-score between -1.0 and -2.5) by DXA and 10-year major osteoporotic fracture greater than 20% or a 10-year probability of hip fracture greater than 3%. These fracture risks are supplied above in the FRAX score, if applicable. * Clinician judgment and/or patient preferences may indicate treatment for people with 10-year fracture probabilities above or below these levels. Dictated by: Dictated on workstation # [id number]
--- NOTE | 2018-07-29 20:55 | Diagnostic Imaging Report ---
INDICATION: Routine screening. Comparison is made with prior mammogram from 04/16/2017 and 02/18/2015. 2-D and 3-D unilateral left screening mammography was performed with CAD. The current study was also evaluated with a Computer Aided Detection (CAD) system. FINDINGS: Scattered fibroglandular densities are identified. Benign calcifications throughout the left breast are noted. Benign nodules in the outer left breast appear stable. Nodular densities in retroareolar left breast appear stable. No spiculated mass or malignant-appearing microcalcifications are identified. Left axilla is unremarkable. IMPRESSION: Stable left mammogram. There are no mammographic features suspicious for malignancy. ACR BI-RADS Category 2: Benign findings. Result letter will be mailed to the patient. Note: At least 10% of breast cancer is not imaged by mammography. Dictated by: Dictated on workstation # [id number]
== END ==
LOC: RAD 10:08
PROVIDERS: ATTEND Family Medicine
DX: Z12.31 Encounter for screening mammogram for malignant neoplasm of breast (principal); Z13.820 Encounter for screening for osteoporosis; M85.88 Other specified disorders of bone density and structure, other site; Z78.0 Asymptomatic menopausal state
CPT/HCPCS: 77080

== ENCOUNTER → 2019-08-04 | Outpatient (CLI) | payer MEDICARE, MEDICAID ==
--- NOTE | 2019-08-04 12:58 | Diagnostic Imaging Report ---
INDICATION: Routine screening. Comparison is made with prior mammogram from 07/29/2018 and 04/16/2017. 2-D and 3-D unilateral left screening mammography was performed with CAD. Scattered fibroglandular densities in the left breast are noted. Circumscribed densities in the retroareolar as well as upper outer aspects of the left breast are again noted and appear to be stable. There are benign calcifications scattered throughout the left breast. No spiculated mass is identified. No malignant-appearing microcalcifications are seen. Left axilla is unremarkable. IMPRESSION: BI-RADS Category 2 No mammographic features suspicious for malignancy are identified. ACR BI-RADS Category 2: Benign findings. Result letter will be mailed to the patient. Note: At least 10% of breast cancer is not imaged by mammography. Dictated by: Dictated on workstation # [id number]
== END ==
LOC: RAD 09:52
PROVIDERS: ATTEND Family Medicine
DX: Z12.31 Encounter for screening mammogram for malignant neoplasm of breast (principal)

== ENCOUNTER → 2020-04-04 | Outpatient (CLI) | payer MEDICARE, MEDICAID ==
--- NOTE | 2020-04-04 12:40 | Diagnostic Imaging Report ---
INDICATION: RT KNEE PAIN, SILVIO HIP PAIN TECHNIQUE: AP pelvis along with 2 views bilateral hips, 11:35 AM CORRELATION STUDY: None FINDINGS: Pelvis is intact with pectineal lines and obturator rings maintained. There is rather advanced degenerative changes in size of lower disc levels. Pubic symphysis preserved. There are advanced degenerative changes of both hips. This includes joint space narrowing, superior acetabular sclerosis and osteophyte formation. Findings are slightly greater on the left. Prominent subcortical cyst in the lateral left femoral head. IMPRESSION: Negative for acute bony abnormality in pelvis with attention either hip. There is rather advanced degenerative change of both hips left slightly greater than right. Also significant degenerative changes lower lumbar spine. . Dictated by: Dictated on workstation # [id number]
--- NOTE | 2020-04-04 12:47 | Diagnostic Imaging Report ---
INDICATION: Rt knee pain, jeovanny hip pain. TECHNIQUE: Three views of the right knee. CORRELATION STUDY: None. FINDINGS: There are rather advanced degenerative changes of both knees, most pronounced at the medial compartment. This includes joint space narrowing, slight loss of the normal smooth cortical surface, and marginal osteophyte formation. There is also significant narrowing of the patellofemoral compartment. There is a large spur-like projection on the superior and to a lesser degree inferior pole. Additional large spur off the distal anterior femur. There is a lucency at the base of the spur superiorly. Suprapatellar joint effusion and generalized soft tissue edema are present. IMPRESSION: Rather advanced tricompartment degenerative changes at the right knee. There is lucency through a prominent spur at the superior pole of the patella which appears likely chronic. A definitive acute bony abnormality is not demonstrated. There is a rather sizable joint effusion and surrounding soft tissue edema. Dictated by: Dictated on workstation # [id number]
== END ==
LOC: RAD 11:12
PROVIDERS: ATTEND Family Medicine
DX: M17.11 Unilateral primary osteoarthritis, right knee (principal); M25.461 Effusion, right knee; M16.0 Bilateral primary osteoarthritis of hip; M47.816 Spondylosis without myelopathy or radiculopathy, lumbar region
CPT/HCPCS: 73523; 73562

== ENCOUNTER → 2020-04-11 | Outpatient (CLI) | payer MEDICARE, MEDICAID | LOC: CARD 13:00 | PROVIDERS: ATTEND Family Medicine | DX: I51.7 Cardiomegaly (principal); I35.1 Nonrheumatic aortic (valve) insufficiency; R63.5 Abnormal weight gain | CPT/HCPCS: 93306 ==

== ENCOUNTER → 2020-06-07 | Outpatient (CLI) | payer MEDICARE, MEDICAID ==
--- NOTE | 2020-06-07 12:26 | Diagnostic Imaging Report ---
EXAMINATION: PA and lateral chest at 11:47 a.m. INDICATION: Dyspnea. This study is less than optimal due to mild motion artifact. The heart size is within normal limits and stable when compared to 12/05/2016. As noted on the prior exam, there is elevation of the right hemidiaphragm. There is now slight blunting of the right costophrenic angle on the PA view. This may be secondary to superimposition as there is no clear evidence for fluid in the right lung base on the lateral view. There is motion artifact on the lateral view however. The right upper lung and left lung are generally clear. The mediastinum is not widened. The osseous structures are intact. IMPRESSION: There is no evidence for an acute cardiopulmonary abnormality on this suboptimal exam. Dictated by: Dictated on workstation # [id number]
== END ==
LOC: RAD 11:16
PROVIDERS: ATTEND Nurse Practitioner Family
DX: R06.00 Dyspnea, unspecified (principal)
CPT/HCPCS: 71046

== ENCOUNTER → 2020-07-19 | Outpatient (CLI) | payer MEDICARE, MEDICAID ==
[~2020-07-19] MED LIST changes: -LACT10SO PO; +LACT10SO3 PO
== END ==
LOC: RT 07:40
PROVIDERS: ATTEND Internal Medicine Critical Care Medicine
DX: Z13.83 Encounter for screening for respiratory disorder NEC (principal); R06.00 Dyspnea, unspecified
CPT/HCPCS: 36600

== ENCOUNTER → 2020-08-08 | Outpatient (CLI) | payer MEDICARE, MEDICAID ==
--- NOTE | 2020-08-08 18:55 | Diagnostic Imaging Report ---
INDICATION: Routine screening. COMPARISON is made with prior mammograms from 08/04/2019 and 07/29/2018. Unilateral left 2-D and 3-D screening mammography was performed with CAD. Scattered fibroglandular densities in the left breast are noted. Multiple nodules in the left breast are stable. There are benign calcifications. No spiculated mass or malignant appearing microcalcifications are seen. Left axilla is unremarkable. IMPRESSION: BI-RADS Category 2 No mammographic features suspicious for malignancy are identified. ACR BI-RADS Category 2: Benign findings. Result letter will be mailed to the patient. Note: At least 10% of breast cancer is not imaged by mammography. Dictated by: Dictated on workstation # [id number]
== END ==
LOC: RAD 11:41
PROVIDERS: ATTEND Family Medicine
DX: Z12.31 Encounter for screening mammogram for malignant neoplasm of breast (principal)
CPT/HCPCS: 77063

== ENCOUNTER 2020-09-28 09:04 | Emergency (ER) | payer MEDICARE, MEDICAID ==
[~2020-09-28] VITALS: Ht 170 cm; Wt 113.0 kg
--- NOTE | 2020-09-28 09:07 | ED Cardiac General ---
History of Present Illness General Chief Complaint: Cardiac/General Problems Stated Complaint: HTN History of Present Illness Date Seen by Provider: September 28, 2020 Time Seen by Provider: 09:06 Initial Comments 70-year-old female sent [facility] from [facility] due to high blood pressure. Patient has a known history of high blood pressure. Chart review shows that her blood pressures been running high for at least the last 4 days. Patient has a little bit of a headache today otherwise no complaints. Patient's blood pressure was systolic 200s over systolic of the 100s. Patient took her blood pressure medications this morning around 7 30-8. A.m. this morning. Allergies and Home Medications Allergies Coded Allergies: No Known Drug Allergies (Verified , 01/13/09) Home Medications Amlodipine Besylate 5 Mg Tablet, 5 MG PO DAILY, (Reported) Hydrochlorothiazide 25 Mg Tab, 25 MG PO DAILY, (Reported) Lactulose 10 Gm/15 Ml Solution, 10 GM PO BID Prescribed by: CAMERON BULLARD on 12/05/16 1058 Lamotrigine 100 Mg Tablet, 100 MG PO BID, (Reported) Lorazepam 0.5 Mg Tablet, 0.5 MG PO TID, (Reported) Olanzapine 10 Mg Tab, 10 MG PO HS, (Reported) Oxycodone Hcl/Acetaminophen 1 Tab Tablet, 1-2 TAB PO Q6H Prescribed by: ALEJO YANES on 02/18/14 1103 Paroxetine Hcl 10 Mg Tablet, 30 MG PO DAILY, (Reported) take with 20mg tab to total 30mg Paroxetine Hcl 20 Mg Tablet, 30 MG PO DAILY, (Reported) take with 10mg tab to total 30mg Potassium Chloride 10 Meq Capsule.sa, 10 MEQ PO BID WITH MEALS, (Reported) Propranolol Hcl 20 Mg Tablet, 20 MG PO BID, (Reported) Simvastatin 20 Mg Tab, 20 MG PO DAILY, (Reported) Sulfamethoxazole/Trimethoprim 1 Each Tablet, 1 EACH PO BID Prescribed by: CAMERON BULLARD on 12/05/16 1058 Tea Tree Oil 60 Ml Oil, 1 DROP TP HS, (Reported) apply one drop to toenails after shower Patient Home Medication List Home Medication List Reviewed: Yes Review of Systems Review of Systems Constitutional: No chills, No fever Respiratory: No Symptoms Reported Gastrointestinal: No Symptoms Reported Genitourinary: No Symptoms Reported Skin: no symptoms reported Psychiatric/Neurological: Headache Past Qgujvcu-Ezwnbe-Dzmvdr Hx Past Med/Social Hx: Reviewed Nursing Past Med/Soc Hx Past Medical History Surgeries: Yes (cysts off chest, possible hysterectomy) Respiratory: No Cardiac: Yes Neurological: Yes (moderate MR) Gastrointestinal: Yes (constipation) Musculoskeletal: No Endocrine: No Blood Disorders: No Family Medical History Patient reports no known family medical history. Physical Exam Vital Signs Vital Signs - First Documented 09/28/20 09:05 Temp 37.0 Pulse 67 Resp 16 B/P (MAP) 208/103 (138) Pulse Ox 96 O2 Delivery Nasal Cannula O2 Flow Rate 2.00 Capillary Refill : Height, Weight, BMI Height: 5'3.50" Weight: 189lbs. oz. [id number]; 32.95 BMI Method:Stated General Appearance: No Apparent Distress, WD/WN HEENT: PERRL/EOMI Respiratory: Chest Non Tender, Lungs Clear Cardiovascular: Regular Rate, Rhythm, No Edema Gastrointestinal: Non Tender, Soft Neurologic/Psychiatric: Alert, Oriented x3 Skin: Normal Color, Warm/Dry Progress/Results/Core Measures Results/Orders Lab Results Laboratory Tests Test 09/28/20 09:08 09/28/20 09:42 Range/Units White Blood Count 10.6 4.3-11.0 10^3/uL Red Blood Count 4.90 3.80-5.11 10^6/uL Hemoglobin 14.6 11.5-16.0 g/dL Hematocrit 46 35-52 % Mean Corpuscular Volume 94 80-99 fL Mean Corpuscular Hemoglobin 30 25-34 pg Mean Corpuscular Hemoglobin Concent 32 32-36 g/dL Red Cell Distribution Width 13.5 10.0-14.5 % Platelet Count 335 130-400 10^3/uL Mean Platelet Volume 8.9 L 9.0-12.2 fL Immature Granulocyte % (Auto) 1 % Neutrophils (%) (Auto) 75 42-75 % Lymphocytes (%) (Auto) 13 12-44 % Monocytes (%) (Auto) 8 0-12 % Eosinophils (%) (Auto) 3 0-10 % Basophils (%) (Auto) 0 0-10 % Neutrophils # (Auto) 8.0 H 1.8-7.8 10^3/uL Lymphocytes # (Auto) 1.4 1.0-4.0 10^3/uL Monocytes # (Auto) 0.8 0.0-1.0 10^3/uL Eosinophils # (Auto) 0.3 0.0-0.3 10^3/uL Basophils # (Auto) 0.0 0.0-0.1 10^3/uL Immature Granulocyte # (Auto) 0.1 0.0-0.1 10^3/uL Sodium Level 142 135-145 MMOL/L Potassium Level 3.8 3.6-5.0 MMOL/L Chloride Level 100 98-107 MMOL/L Carbon Dioxide Level 30 21-32 MMOL/L Anion Gap 12 5-14 MMOL/L Blood Urea Nitrogen 18 7-18 MG/DL Creatinine 0.87 0.60-1.30 MG/DL Estimat Glomerular Filtration Rate > 60 BUN/Creatinine Ratio 21 Glucose Level 179 H 70-105 MG/DL Calcium Level 9.2 8.5-10.1 MG/DL Urine Color YELLOW Urine Clarity CLEAR Urine pH 6.0 5-9 Urine Specific [place] >=1.030 1.016-1.022 Urine Protein NEGATIVE NEGATIVE Urine Glucose (UA) NEGATIVE NEGATIVE Urine Ketones NEGATIVE NEGATIVE Urine Nitrite NEGATIVE NEGATIVE Urine Bilirubin NEGATIVE NEGATIVE Urine Urobilinogen 0.2 < = 1.0 MG/DL Urine Leukocyte Esterase NEGATIVE NEGATIVE Urine RBC (Auto) NEGATIVE NEGATIVE Urine RBC NONE /HPF Urine WBC RARE /HPF Urine Squamous Epithelial Cells 5-10 /HPF Urine Crystals NONE /LPF Urine Bacteria NEGATIVE /HPF Urine Casts NONE /LPF Urine Mucus NEGATIVE /LPF Urine Culture Indicated NO My Orders Orders - SIMEON,MAXIMO L DO Metoprolol Tartrate Injection (Lopressor (09/28/20 09:15) Basic Metabolic Panel (09/28/20 09:13) Cbc With Automated Diff (09/28/20 09:13) Ua Culture If Indicated (09/28/20 09:13) Propranolol Tablet (Inderal Tablet) (09/28/20 10:30) Metoprolol Tartrate Injection (Lopressor (09/28/20 10:30) Medications Given in ED Current Medications Medications Dose Ordered Sig/Pepe Route Start Time Stop Time Status Last Admin Dose Admin Metoprolol Tartrate 5 mg ONCE ONCE IV 09/28/20 09:15 09/28/20 09:16 DC 09/28/20 09:16 5 MG Metoprolol Tartrate 5 mg ONCE ONCE IV 09/28/20 10:30 09/28/20 10:31 DC 09/28/20 10:26 5 MG Propranolol HCl 20 mg ONCE ONCE PO 09/28/20 10:30 09/28/20 10:31 DC 09/28/20 10:26 20 MG Vital Signs/I&O 09/28/20 09:05 Temp 37.0 Pulse 67 Resp 16 B/P (MAP) 208/103 (138) Pulse Ox 96 O2 Delivery Nasal Cannula O2 Flow Rate 2.00 Progress Progress Note : Time: 10:44 Progress Note Patient's blood pressure improved to acceptable 180s over 80s. Patient with longstanding history of hypertension. Discussed with caregivers they need to have her follow-up with her primary care provider for outpatient medication adjustment. Patient stable and discharged home Departure Impression Primary Impression: Uncontrolled hypertension Disposition: 01 HOME, SELF-CARE Condition: Stable Departure-Patient Inst. Referrals: MAY HUNTER MD (PCP/Family) Primary Care Physician Patient Instructions: High Blood Pressure in Adults Add. Discharge Instructions: Follow-up in the next couple days with primary care provider for medication adjustment and review All discharge instructions reviewed with patient and/or family. Voiced understanding. MAXIMO SIMEON DO September 28, 2020 09:06
[2020-09-28] MEDS ORDERED: meTOprolol 5 MG/5 ML (LOPRESSOR) VIAL IV ONE ×2 (09:15→10:30)
[2020-09-28 09:24] LABS: BASOPHILS % (AUTO) 0 % (0-10); EOSINOPHILS # (AUTO) 0.3 10^3/uL (0.0-0.3); EOSINOPHILS % (AUTO) 3 % (0-10); HEMATOCRIT 46 % (35-52); HEMOGLOBIN 14.6 g/dL (11.5-16.0); LYMPHOCYTES # (AUTO) 1.4 10^3/uL (1.0-4.0); LYMPHOCYTES % (AUTO) 13 % (12-44); MEAN CORPUSCULAR HEMOGLOBIN 30 pg (25-34); MEAN CORPUSCULAR HGB CONC 32 g/dL (32-36); MEAN CORPUSCULAR VOLUME 94 fL (80-99); MEAN PLATELET VOLUME 8.9 fL (9.0-12.2); MONOCYTES # (AUTO) 0.8 10^3/uL (0.0-1.0); MONOCYTES % (AUTO) 8 % (0-12); NEUTROPHILS % (AUTO) 75 % (42-75); PLATELET COUNT 335 10^3/uL (130-400); WHITE BLOOD COUNT 10.6 10^3/uL (4.3-11.0)
[2020-09-28 09:31] LABS: CHLORIDE 100 MMOL/L (98-107); POTASSIUM 3.8 MMOL/L (3.6-5.0); SODIUM 142 MMOL/L (135-145)
[2020-09-28 09:32] LABS: CALCIUM 9.2 MG/DL (8.5-10.1)
[2020-09-28 09:33] LABS: GLUCOSE 179 MG/DL (70-105)
[2020-09-28 09:34] LABS: CARBON DIOXIDE 30 MMOL/L (21-32)
[2020-09-28 09:37] LABS: CREATININE SERUM 0.87 MG/DL (0.60-1.30); GFR ESTIMATED > 60
[2020-09-28 09:38] LABS: BUN/CREATININE RATIO 21
[2020-09-28 09:50] LABS: BILIRUBIN,URINE NEGATIVE (NEGATIVE); CLARITY,URINE CLEAR; COLOR,URINE YELLOW; GLUCOSE, URINE (UA) NEGATIVE (NEGATIVE); KETONES,URINE NEGATIVE (NEGATIVE); LEUKOCYTE ESTERASE ,URINE NEGATIVE (NEGATIVE); NITRITE,URINE NEGATIVE (NEGATIVE); PROTEIN,URINE NEGATIVE (NEGATIVE)
[2020-09-28 10:01] LABS: BACTERIA,URINE NEGATIVE /HPF; WBC,URINE RARE /HPF
[2020-09-28] MEDS ORDERED: PROPRANOLOL 20 MG (INDERAL) TABLET PO ONE (10:30)
[2020-09-28 10:55] VITALS: BP 181/88
== END 2020-09-28 10:55 | disposition home or self-care (01) ==
LOC: EDUNIT# 09:04 → ER 09:05
DX: I10 Essential (primary) hypertension (principal)
CPT/HCPCS: 36415; 80048; 81000; 85025

== ENCOUNTER 2021-07-03 07:45 | Emergency (ER) | payer MEDICARE, MEDICAID ==
[2021-07-03 07:45] VITALS: BP 0/0
[~2021-07-03 07:45] MED LIST changes: -SULF1TAB35 PO; +SULF1TAB38 PO
[2021-07-03] MEDS ORDERED: ATROPINE INJECTION 1 MG/10 ML SYR (ABBOTT) INJ ONE (07:47)
[2021-07-03] MEDS ORDERED: AMIODARONE (BOLUS) 150 MG/3 ML IV ONE (07:47)
[2021-07-03] MEDS ORDERED: SODIUM BICARB 8.4% 50 MEQ/50 ML (ABBOTT) SYR INJ ONE (07:47)
[2021-07-03] MEDS ORDERED: EPINEPHrine 0.1 MG/ML 10 ML (HOSPIRA) SYR IJ ONE (07:47)
[2021-07-03 08:22] LABS: BASOPHILS # (AUTO) 0.1 10^3/uL (0.0-0.1); BASOPHILS % (AUTO) 0 % (0-10); EOSINOPHILS # (AUTO) 0.1 10^3/uL (0.0-0.3); EOSINOPHILS % (AUTO) 1 % (0-10); HEMATOCRIT 41 % (35-52); HEMOGLOBIN 11.9 g/dL (11.5-16.0); LYMPHOCYTES # (AUTO) 10.4 10^3/uL (1.0-4.0); LYMPHOCYTES % (AUTO) 51 % (12-44); MEAN CORPUSCULAR HEMOGLOBIN 29 pg (25-34); MEAN CORPUSCULAR HGB CONC 29 g/dL (32-36); MEAN CORPUSCULAR VOLUME 101 fL (80-99); MEAN PLATELET VOLUME 9.5 fL (9.0-12.2); MONOCYTES # (AUTO) 1.5 10^3/uL (0.0-1.0); MONOCYTES % (AUTO) 7 % (0-12); NEUTROPHILS # (AUTO) 6.9 10^3/uL (1.8-7.8); NEUTROPHILS % (AUTO) 34 % (42-75); PLATELET COUNT 216 10^3/uL (130-400); WHITE BLOOD COUNT 20.3 10^3/uL (4.3-11.0)
--- NOTE | 2021-07-03 08:25 | ED CPR ---
HPI-CPR General Chief Complaint: Code Blue Stated Complaint: CODE BLUE Nursing Triage Note: TO ED PER EMS WITH CPR IN PROGRESS. SEE NOTES PATIENT IS COVID POS Source of Information: Caregiver, EMS Exam Limitations: Physical Impairments History of Present Illness Date Seen by Provider: Jul 03, 2021 Time Seen by Provider: 07:45 Initial Comments Patient is a 71-year-old female with a history of mental impairment, multiple mental health disorders, hypertension, hypercholesterolemia, CODE BLUE. Time of call approximately 7 AM. Caregivers report CPR started immediately, it was a witnessed arrest. Caregivers report that she was not feeling good about an hour prior to arrival. She had decided to lay in bed for a little bit they were in the process of getting her up when she started to turn blue, quit breathing and slumped over. Ambulance crew (arrived 713) placed LMA/IGel, multiple rounds of epinephrine prior to arrival. Normal blood sugar. They did report ROSC at 1 point however shortly after arrival it was noted that the patient did not have a pulse. CPR was resumed. Patient was intubated -required assistance from anesthesia. Patient COVID positive - diagnosed 4 days ago. We would intermittently achieve a slow bradycardic rhythm in the 50s and 60s and after a couple of minutes she would bradycardia down back into PEA. She never had a shockable rhythm. Bicarb was given. 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 They elected to make her a DNR. Patient was also given 150 mg of amiodarone. Multiple additional rounds of epinephrine. Finally the patient was pronounced at approximately 0822. Witnessed Arrest: Yes Bystander CPR: Yes Paramedics Initial Findings: No Pulse, No Respirations Pre Hospital Treatment: Bag Valve Mask, CPR/Thumper, Intubation, Oxygen, IV Fluids, Amiodorone (mg), Epinephrine (mg) Allergies and Home Medications Allergies Coded Allergies: No Known Drug Allergies (Verified , 01/13/09) Patient Home Medication List Home Medication List Reviewed: Yes Amlodipine Besylate (Norvasc) 5 Mg Tablet, 5 MG PO DAILY, (Reported) Entered as Reported by: KIRSTEN WILLIS on 02/11/14 1259 Hydrochlorothiazide (Hctz) 25 Mg Tab, 25 MG PO DAILY, (Reported) Entered as Reported by: KIRSTEN WILLIS on 02/11/14 1259 Lactulose (Lactulose) 10 Gm/15 Ml Solution, 10 GM PO BID Prescribed by: CAMERON BULLARD on 12/05/16 1058 Lamotrigine (Lamictal) 100 Mg Tablet, 100 MG PO BID, (Reported) Entered as Reported by: KIRSTEN WILLIS on 02/11/14 125 Lorazepam (Ativan) 0.5 Mg Tablet, 0.5 MG PO TID, (Reported) Entered as Reported by: KIRSTEN WILLIS on 02/11/14 1259 Olanzapine (Zyprexa 10 Mg Tab) 10 Mg Tab, 10 MG PO HS, (Reported) Entered as Reported by: KIRSTEN WILLIS on 02/11/14 125 Oxycodone Hcl/Acetaminophen (Percocet 5/325 Mg Tablet) 1 Tab Tablet, 1-2 TAB PO Q6H Prescribed by: ALEJO YANES on 02/18/14 1103 Paroxetine Hcl (Paxil 10 Mg) 10 Mg Tablet, 30 MG PO DAILY, (Reported) Entered as Reported by: KIRSTEN WILLIS on 02/11/14 125 Paroxetine Hcl (Paxil) 20 Mg Tablet, 30 MG PO DAILY, (Reported) Entered as Reported by: KIRSTEN WILLIS on 02/11/14 125 Potassium Chloride (Potassium Chloride 10 Meq Cap) 10 Meq Capsule.sa, 10 MEQ PO BID WITH MEALS, (Reported) Entered as Reported by: KIRSTEN WILLIS on 02/11/14 125 Propranolol Hcl (Inderal) 20 Mg Tablet, 20 MG PO BID, (Reported) Entered as Reported by: KIRSTEN WILLIS on 02/11/14 125 Simvastatin (Zocor) 20 Mg Tab, 20 MG PO DAILY, (Reported) Entered as Reported by: KIRSTEN WILLIS on 02/11/14 125 Sulfamethoxazole/Trimethoprim (Bactrim Ds Tablet) 1 Each Tablet, 1 EACH PO BID Prescribed by: CAMERON BULLARD on 12/05/16 1058 Tea Tree Oil (Tea Tree) 60 Ml Oil, 1 DROP TP HS, (Reported) Entered as Reported by: KIRSTEN WILLIS on 02/11/14 125 Review of Systems Review of Systems Constitutional: see HPI Other Comments Unable to assess HPI, review of systems, past medical family or social history secondary to critical state Past Qlnvrzr-Yedgav-Crvjdj Hx Past Medical History Surgeries: Yes (cysts off chest, possible hysterectomy) Respiratory: No Cardiac: Yes Neurological: Yes (moderate MR) Gastrointestinal: Yes (constipation) Musculoskeletal: No Endocrine: No Blood Disorders: No Family Medical History Patient reports no known family medical history. Physical Exam Vital Signs Vital Signs - First Documented 07/03/21 07:45 Pulse 0 Resp 0 B/P (MAP) 0/0 (0) Pulse Ox 0 Capillary Refill : Less Than 3 Seconds Height, Weight, BMI Height: 5'3.50" Weight: 189lbs. oz. 85.162773sp; 39.00 BMI Method:Stated General Appearance: WD/WN HEENT: Other (pupils fixed, right 5mm, left 4mm; IGEL in place intially) Neck: Normal Inspection Respiratory: Lungs Clear (with BVM) Cardiovascular: Other (no pulse) Gastrointestinal: Soft, Distended Extremity: Normal Inspection Neurologic/Psychiatric: Other (unrepsonsive) Skin: Pallor Progress/Results/Core Measures Results/Orders Lab Results Laboratory Tests Test 07/03/21 08:01 Range/Units White Blood Count 20.3 H 4.3-11.0 10^3/uL Red Blood Count 4.05 3.80-5.11 10^6/uL Hemoglobin 11.9 11.5-16.0 g/dL Hematocrit 41 35-52 % Mean Corpuscular Volume 101 H 80-99 fL Mean Corpuscular Hemoglobin 29 25-34 pg Mean Corpuscular Hemoglobin Concent 29 L 32-36 g/dL Red Cell Distribution Width 13.2 10.0-14.5 % Platelet Count 216 130-400 10^3/uL Mean Platelet Volume 9.5 9.0-12.2 fL Immature Granulocyte % (Auto) 7 % Neutrophils (%) (Auto) 34 L 42-75 % Lymphocytes (%) (Auto) 51 H 12-44 % Monocytes (%) (Auto) 7 0-12 % Eosinophils (%) (Auto) 1 0-10 % Basophils (%) (Auto) 0 0-10 % Neutrophils # (Auto) 6.9 1.8-7.8 10^3/uL Lymphocytes # (Auto) 10.4 H 1.0-4.0 10^3/uL Monocytes # (Auto) 1.5 H 0.0-1.0 10^3/uL Eosinophils # (Auto) 0.1 0.0-0.3 10^3/uL Basophils # (Auto) 0.1 0.0-0.1 10^3/uL Immature Granulocyte # (Auto) 1.4 H 0.0-0.1 10^3/uL Neutrophils % (Manual) 30 % Lymphocytes % (Manual) 51 % Monocytes % (Manual) 7 % Eosinophils % (Manual) 0 % Basophils % (Manual) 0 % Band Neutrophils 12 % Smudge Cells SLIGHT Blood Morphology Comment NORMAL Prothrombin Time 15.1 H 12.2-14.7 SEC INR Comment 1.1 0.8-1.4 Activated Partial Thromboplast Time 49 H 24-35 SEC Sodium Level 142 135-145 MMOL/L Potassium Level 3.9 3.6-5.0 MMOL/L Chloride Level 100 98-107 MMOL/L Carbon Dioxide Level 19 L 21-32 MMOL/L Anion Gap 23 H 5-14 MMOL/L Blood Urea Nitrogen 18 7-18 MG/DL Creatinine 1.46 H 0.60-1.30 MG/DL Estimat Glomerular Filtration Rate 38 BUN/Creatinine Ratio 12 Glucose Level 287 H 70-105 MG/DL Calcium Level 8.2 L 8.5-10.1 MG/DL Corrected Calcium 8.9 8.5-10.1 MG/DL Total Bilirubin 0.2 0.1-1.0 MG/DL Aspartate Amino Transf (AST/SGOT) 141 H 5-34 U/L Alanine Aminotransferase (ALT/SGPT) 153 H 0-55 U/L Alkaline Phosphatase 102 40-136 U/L C-Reactive Protein High Sensitivity 1.32 H 0.00-0.50 MG/DL Total Protein 5.8 L 6.4-8.2 GM/DL Albumin 3.1 L 3.2-4.5 GM/DL Procalcitonin 0.03 <0.10 NG/ML My Orders Orders - JA MURCIA MD Cbc With Automated Diff (07/03/21 08:15) Comprehensive Metabolic Panel (07/03/21 08:15) Blood Culture (07/03/21 08:15) Sputum Culture (07/03/21 08:15) Urinalysis (07/03/21 08:15) Urine Culture (07/03/21 08:15) Protime With Inr (07/03/21 08:15) Partial Thromboplastin Time (07/03/21 08:15) Ed Iv/Invasive Line Start (07/03/21 08:15) Ed Iv/Invasive Line Start (07/03/21 08:15) Vital Signs Adult Sepsis Patie Q15M (07/03/21 08:15) O2 (07/03/21 08:15) Remove Rings In Anticipation O (07/03/21 08:15) Lactic Acid Analyzer (07/03/21 08:15) Hs C Reactive Protein (07/03/21 08:15) Procalcitonin (Pct) (07/03/21 08:15) Catheter(Urinary) Insert & Ass 03,15 (07/03/21 08:15) Ng Tube Insert & Assessment (07/03/21 08:15) Covid-19 External Lab Results (07/03/21 08:15) Isolation Central Supply Req (07/03/21 08:15) Manual Differential (07/03/21 08:01) Vital Signs/I&O 07/03/21 07:45 Pulse 0 Resp 0 B/P (MAP) 0/0 (0) Pulse Ox 0 Blood Pressure Mean: 0 Initial ECG Impression Date: Jul 03, 2021 Initial ECG Impression Time: 08:10 Initial ECG Rate: 64 Comment Sinus rhythm at 64 with PAC, IA interval 293, QRS 165, QTc 445. No ST segment elevation or depression is noted. Artifact at the baseline lead V6 Departure Impression Primary Impression: Cardiac arrest Additional Impression: COVID-19 Disposition: 20 Condition: JA MURCIA MD Jul 03, 2021 08:25
[2021-07-03 08:27] LABS: ALBUMIN 3.1 GM/DL (3.2-4.5); POTASSIUM 3.9 MMOL/L (3.6-5.0)
[2021-07-03 08:28] LABS: CALCIUM 8.2 MG/DL (8.5-10.1)
[2021-07-03 08:29] LABS: INR 1.1 (0.8-1.4); PROTHROMBIN TIME PATIENT 15.1 SEC (12.2-14.7)
--- NOTE | 2021-07-03 08:29 | Anesthesia-Procedure Note ---
Procedures/Interventions Procedure Start/Stop/Diagnosis Date of Procedure: Jul 03, 2021 Start Time: 08:02 Referring Physician: Dr Chirinos Preprocedural Diagnosis: Code Blue in CPR Brief History Called emergently to the ED for an intubation. CPR was being performed on the patient. Unsuccessful attempt times 2 prior to my arrival. Dr Chirinos in room throughout. Stop Time: 08:05 Postprocedural Diagnosis: Same Intubation Reason Intubation/Diagnosis: Code Blue RSI: No 100% pre-Ox, [id number]: Yes (Patient being bag-mask ventilated on my arrival. SaO2 ~ 80%) Intubation Method: orotracheal Videoscope used: Yes (Rasmussen X3 blade) Grade View: 1 Mask Ventilation: positive ETT Securred @ (cm): 23 Intubated with ease: Yes Intubation Complications: no complications ANDI TELLEZ DO Jul 03, 2021 08:29
[2021-07-03 08:30] LABS: TOTAL PROTEIN 5.8 GM/DL (6.4-8.2)
[2021-07-03 08:31] LABS: BILIRUBIN,TOTAL 0.2 MG/DL (0.1-1.0)
[2021-07-03 08:33] LABS: CREATININE SERUM 1.46 MG/DL (0.60-1.30)
[2021-07-03 08:58] LABS: BAND NEUTROPHILS 12 %; BASOPHILS % (MANUAL) 0 %; EOSINOPHILS % (MANUAL) 0 %; LYMPHOCYTES % (MANUAL) 51 %; MONOCYTES % (MANUAL) 7 %; NEUTROPHILS % (MANUAL) 30 %; RBC MORPH NORMAL
== END 2021-07-03 10:21 | disposition expired ==
LOC: EDUNIT# 07:45 → ER 07:46
DX: I46.9 Cardiac arrest, cause unspecified (principal); U07.1 COVID-19; I10 Essential (primary) hypertension; E78.00 Pure hypercholesterolemia, unspecified; Z79.899 Other long term (current) drug therapy; Z73.0 Burn-out
CPT/HCPCS: 36415; 80053; 84145; 85007; 85027; 85610; 85730; 86141; 93005